=== PATIENT | female | born 1935 | race Two or more races ===

== ENCOUNTER 2016-08-11 16:21 | Inpatient (IN) | payer MEDICAID, MEDICARE, OTHER ==
[~2016-08-11] VITALS: Ht 162.6 cm; Wt 63.5 kg
[~2016-08-11 16:21] MED LIST: *INS REG SQ; ASCO500T9 PO; ASPI81TA2 PO; BLOO-367 VI; CLON0.1T14 PO; CLOP75TA2 PO; DEXT50DI8 IV; FERR325T28 PO; HYDR-3326 PO; HYDR-4076 PO; INSU100C SQ; INSU100V28 SQ; Insulin Glargine,Hum.rec.anlog SQ; LEVO500T15 PO; LINE600T PO; Metoprolol Tartrate PO; SULF1TAB48 PO; Valsartan PO; Zinc Sulfate PO
--- NOTE | 2016-08-11 16:21 | NUR ---
BBRA FROM [facility] FOR LOW BLOOD SUGAR. PT'S BLOOD SUGAR AT FACILITY WAS 34, GIVEN 1GLUCAGON IM IN FIELD. BLOOD SUGAR UP AT 96 IN FIELD. PER RA PT IS MORE ALERT NOW CLOSER BACK TO BASELINE. PT IS A VIETNAMESE SPEAKER, AAO X2, FORGETFUL BUT FOLLOWS COMMANDS. PT PLACED IN GOWN AND MONITOR. AWAITING MD FOR EVAL.
[2016-08-11] MEDS ORDERED: FURO40TA5 PO (16:48)
[2016-08-11] MEDS ORDERED: INSU100V11 SQ (16:48)
[2016-08-11] MEDS ORDERED: CLOP75TA2 PO (16:48)
[2016-08-11] MEDS ORDERED: BLOO-697 IN (16:48)
[2016-08-11] MEDS ORDERED: INSU100V7 SQ (16:48)
[2016-08-11] MEDS ORDERED: VALS80TA2 PO (16:48)
[2016-08-11] MEDS ORDERED: ASCO500T9 PO (16:48)
[2016-08-11] MEDS ORDERED: METO25TA6 PO (16:48)
[2016-08-11] MEDS ORDERED: CLON0.1T PO (16:48)
[2016-08-11] MEDS ORDERED: ATOR10TA PO (16:48)
[2016-08-11] MEDS ORDERED: MULT-659 PO (16:48)
[2016-08-11] MEDS ORDERED: POTA-88 PO (16:48)
[2016-08-11] MEDS ORDERED: HYDR-3326 PO (16:48)
[2016-08-11] MEDS ORDERED: ASPI81TA2 PO (16:48)
[2016-08-11] MEDS ORDERED: SILV25CR5 TP (16:48)
[2016-08-11 16:53] LABS: BASOPHILS # (AUTO) 0.1 /CMM (0.0-0.2); BASOPHILS % (AUTO) 0.8 % (0.0-2.0); EOSINOPHILS # (AUTO) 0.2 /CMM (0.0-0.7); EOSINOPHILS % (AUTO) 1.8 % (0.0-6.0); HEMATOCRIT 32 % (33-45); HEMOGLOBIN 10.7 g/dL (11.5-14.8); LYMPHOCYTES # (AUTO) 1.2 /CMM (0.8-4.8); MEAN CORPUSCULAR HEMOGLOBIN 30 PG (26.0-33.0); MEAN CORPUSCULAR HGB CONC 34 g/dl (31.0-36.0); MEAN CORPUSCULAR VOLUME 88 fL (82-100); MONOCYTES # (AUTO) 0.5 /CMM (0.1-1.30); MONOCYTES % (AUTO) 4.1 % (2.0-12.0); NEUTROPHILS # (AUTO) 9.7 /CMM (1.8-8.9); NEUTROPHILS % (AUTO) 83.3 % (43.0-81.0); PLATELET COUNT (AUTO) 303 /CMM (150-450); RDW COEFFICIENT OF VARIATION 13.4 (11.5-15.0); RED BLOOD CELL COUNT(AUTO) 3.58 MIL/uL (4.0-5.2); WHITE BLOOD COUNT (AUTO) 11.7 K/uL (4.3-11.0)
[2016-08-11] MEDS ORDERED: IV NS 0.9% 1,000 ML BAG IV ONE (17:00)
[2016-08-11 17:02] LABS: CALCIUM, SERUM 10.2 mg/dL (8.5-10.1); POTASSIUM 3.9 mmol/L (3.5-5.1)
[2016-08-11 17:06] LABS: INR 0.99 (0.87-1.13); PROTHROMBIN TIME 10.3 SECS (9.5-12.7)
[2016-08-11] MEDS ORDERED: IV SET PRIMARY 1 EA INFUS.SET MC ONE (17:08)
[2016-08-11] MEDS ORDERED: IV NS 0.9% 1,000 ML ONE (17:08)
[2016-08-11 17:11] LABS: TROPONIN I 0.049 ng/mL (0.00-0.056)
[2016-08-11 17:14] LABS: ALBUMIN 2.6 g/dL (3.4-5.0); BILIRUBIN,DIRECT 0.1 mg/dL (0.0-0.2); BILIRUBIN,TOTAL 0.1 mg/dL (0.2-1.0); TOTAL PROTEIN, SERUM 7.2 g/dL (6.4-8.2)
--- NOTE | 2016-08-11 17:18 | NUR ---
pt more alert and responsive. iv fluids given as ordered. continue to monitor.
--- NOTE | 2016-08-11 17:58 | NUR ---
RN NOTES RECEIVED REPORT FROM IRMA BARTHOLOMEW RN. AWAITING FOR PT.
--- NOTE | 2016-08-11 17:58 | NUR ---
REPORT GIVEN TO QUINTIN ROCHA FOR ADEOLA
[2016-08-11 18:38] LABS: APPEARANCE,URINE Clear (CLEAR); BILIRUBIN,URINE Negative (NEGATIVE); BLOOD, URINE Moderate Ery/uL (NEGATIVE); COLOR,URINE Yellow (YELLOW); KETONES,URINE Negative (NEGATIVE); LEUKOCYTE ESTERASE ,URINE Negative (NEGATIVE); NITRITE, URINE Negative (NEGATIVE); PH,URINE 5.5 (5.0-8.0); PROTEIN,URINE >=300 mg/dl (NEGATIVE); UGLUCOSE Negative (NEGATIVE); UROBILINOGEN,URINE 0.2 EU/dL (0.2)
--- NOTE | 2016-08-11 19:00 | NUR ---
RN CLOSING NOTES PT STILL NOT HERE, REPORT GIVEN TO NIGHT NURSE TO TAKE CARE OF PT WHEN THEY ARRIVE.
--- NOTE | 2016-08-11 19:00 | NUR ---
PT IV OUT, NEW IV STARTED LEFT AC 20G. BANDAGE AND ARMGUARD PLACED AROUND NEW SITE.
[2016-08-11 19:03] LABS: ADD URINE CULTURE YES; BACTERIA,URINE Many /HPF (None Seen); SQUAMOUS EPITHELIAL CELL,UR Few /HPF (None Seen); WBC,URINE 0-2 /HPF (0-3)
--- NOTE | 2016-08-11 19:10 | NUR ---
PT RECEIVED FROM EMERGENCY ROOM [facility]IA [facility]. A/O X2 WELSH SPEAKING WITH PERIODS OF FORGETFULNESS AND AGITATION. ON ROOM AIR AND SATING WELL. VITAL SIGNS AND BODY CHECK DONE. PT SKIN CLEAN AND INTACT. IV SITE LFA CLEAN, INTACT, FLUSHING WELL. HEART AND LUNG SOUNDS AUSCULTATED. ALL SAFETY MEASURES IN PLACE. CALL LIGHT WITHIN REACH. BED IN LOWEST POSITION AND LOCKED. WILL CONTINUE TO MONITOR.
[2016-08-11] MEDS ORDERED: MAG HYDROX/AL HYDROX/SIMETH 30 ML UDC PO PRN (19:30)
[2016-08-11] MEDS ORDERED: BLOOD SUGAR DIAGNOSTIC 1 EACH STRIP IN SCH (19:30)
[2016-08-11] MEDS ORDERED: ONDANSETRON HCL/PF 4 MG/2 ML VIAL IVP PRN (19:30)
[2016-08-11] MEDS ORDERED: IV D5/0.45 NACL 1,000 ML IV SCH (19:30)
[2016-08-11] MEDS ORDERED: Z GUARD REMEDY 2 OZ OINT TP PRN (19:30)
[2016-08-11] MEDS ORDERED: ZOLPIDEM TARTRATE 5 MG TABLET PO PRN (19:30)
[2016-08-11] MEDS ORDERED: MAGNESIUM HYDROXIDE 30 ML UDC PO PRN (19:30)
[2016-08-11 20:00] VITALS: BP 153/96
[2016-08-11] MEDS ORDERED: LORAZEPAM INJ 2 MG/ML VIAL ONE (22:41)
[2016-08-11] MEDS ORDERED: IV SET PRIMARY PUMP SET 1 EA INFUS.SET MC ONE (22:43)
[2016-08-11] MEDS: LORAZEPAM INJ 2 MG/ML VIAL IV PRN (22:47)
[2016-08-11] MEDS: BLOOD SUGAR DIAGNOSTIC 1 EACH STRIP IN SCH ×2 (22:47→22:53)
[2016-08-11] MEDS: ATORVASTATIN 10 MG TABLET PO SCH (22:47)
[2016-08-11] MEDS: DEXTROSE 50%-WATER 50 ML DISP.SYRIN IV PRN (22:58)
--- NOTE | 2016-08-11 23:00 | NUR ---
PLANT GUARD NOTE SPOKE WITH LANGUAGE PATHOLOGIST DR. THORNE FOR PT'S INCREASED AGITATION AND RESTLESSNESS. ORDER FOR ONE TIME ATIVAN IVP 1MG/0.5ML. ORDERS NOTED AND CARRIED OUT.
[2016-08-12] VITALS: BP 169/94
--- NOTE | 2016-08-12 | NUR ---
RN NOTE PT INCREASED AGITATION, SPOKE WITH DR THORNE AND ORDERED BILATERAL SOFT WRIST RESTRAINTS. WILL CONTINUE TO MONITOR.
[2016-08-12] MEDS: BLOOD SUGAR DIAGNOSTIC 1 EACH STRIP IN SCH ×10 (02:04→21:55)
[2016-08-12 04:00] VITALS: BP 108/69
--- NOTE | 2016-08-12 06:30 | NUR ---
LORRY WEIGHER CLOSING NOTE PT REMAINED STABLE DURING SHIFT. NO ACUTE DISTRESS NOTED. ALL SAFETY MEASURES IN PLACE. BED IN LOWEST POSITION, LOCKED AND WITH BED ALARM ON. BILATERAL SOFT WRIST RESTRAINTS ON. WILL ENDORSE TO NEXT SHIFT FOR ADEOLA.
[2016-08-12 06:40] LABS: HEMATOCRIT 28 % (33-45); HEMOGLOBIN 9.5 g/dL (11.5-14.8); LYMPHOCYTES # (AUTO) 0.8 /CMM (0.8-4.8); LYMPHOCYTES % (AUTO) 6.1 % (20.0-44.0); MEAN CORPUSCULAR HEMOGLOBIN 30 PG (26.0-33.0); MEAN CORPUSCULAR HGB CONC 34 g/dl (31.0-36.0); MEAN CORPUSCULAR VOLUME 89 fL (82-100); MONOCYTES # (AUTO) 0.5 /CMM (0.1-1.30); MONOCYTES % (AUTO) 3.8 % (2.0-12.0); NEUTROPHILS # (AUTO) 11.8 /CMM (1.8-8.9); NEUTROPHILS % (AUTO) 90.1 % (43.0-81.0); PLATELET COUNT (AUTO) 297 /CMM (150-450); RDW COEFFICIENT OF VARIATION 14.3 (11.5-15.0); RED BLOOD CELL COUNT(AUTO) 3.18 MIL/uL (4.0-5.2); WHITE BLOOD COUNT (AUTO) 13.1 K/uL (4.3-11.0)
[2016-08-12 06:45] LABS: CALCIUM, SERUM 9.5 mg/dL (8.5-10.1); CREATININE 0.9 mg/dL (0.6-1.3); MAGNESIUM 1.7 mg/dL (1.8-2.4); PHOSPHORUS 3.2 mg/dL (2.5-4.9); POTASSIUM 4.2 mmol/L (3.5-5.1)
--- NOTE | 2016-08-12 07:30 | NUR ---
RN NOTES RECEIVED PT RESTING IN BED, AWAKE LAERT ORIENTED X2-3 LEBANESE SPEEKING. ON RA BRIAN WELL. SR ON TELE MONITOR. PT NOTED AGIATED AND PERIODS OF CONFUSION, HACK SAW OPERATOR AT BEDSIDE FOR TRANSLATION. PT HAS BILATERAL SOFT WRIST RESTRAINTS, RELEASED AND CHECKED FOR CIRCULATION. WITH IVF D5 1/2 NS@50ML/HR, INFUSING ON L FA. NO DISCOMFORT NOTED. CALL LIGHT WITHIN REACH, WILL CONT TO MONITOR
[2016-08-12 08:00] VITALS: BP 173/92
[2016-08-12] MEDS: CLOPIDOGREL BISULFATE 75 MG TABLET PO SCH (08:36)
[2016-08-12] MEDS: MULTIVIT, IRON, MIN NO. 8, FA 1 TAB TABLET PO SCH (08:36)
[2016-08-12] MEDS: CLONIDINE HCL 0.1 MG TABLET PO SCH ×3 (08:37→17:31)
[2016-08-12] MEDS: ASCORBIC ACID 500 MG TABLET PO SCH (08:37)
[2016-08-12] MEDS: PANTOPRAZOLE 40 MG TABLET.DR PO SCH (08:37)
[2016-08-12] MEDS: ASPIRIN 81 MG TAB.CHEW PO SCH (08:37)
[2016-08-12] MEDS: VALSARTAN 80 MG TABLET PO SCH (08:38)
--- NOTE | 2016-08-12 08:40 | NUR ---
RN NOTES LEVEMIR 40 UNITS HELD, BS 76MG/DL
[2016-08-12] MEDS: METOPROLOL TARTRATE 25 MG TABLET PO SCH ×2 (08:42→17:32)
[2016-08-12] MEDS ORDERED: INSULIN DETEMIR 100 UNIT/ML CARTRIDGE SQ SCH (09:00)
[2016-08-12] MEDS ORDERED: SECONDARY IV SET 1 EA INFUS.SET MC ONE (11:41)
[2016-08-12] MEDS: Magnesium 1GM/D5W 100ML PREMIX 100 ML IV SCH ×2 (11:46→13:27)
[2016-08-12] MEDS ORDERED: Magnesium 1GM/D5W 100ML PREMIX 100 ML IV SCH ×2 (12:30→13:00)
[2016-08-12 16:00] VITALS: BP 121/53
--- NOTE | 2016-08-12 19:30 | NUR ---
MATERIALS MGMT TECH INITIAL NOTE PT IN LOWEST BED POSITION, LOCKED WITH BED ALARM ON. A/O X2 URDU SPEAKING, CONFUSED AT TIMES AND RESTLESS WITH BILATERAL SOFT WRIST RESTRAINTS ON. IV LFA #22G SL FLUSHING WELL, PATENT AND INTACT. ON ROOM AIR AND SATING WELL. ALL SAFETY MEASURES IN PLACE. CALL LIGHT WITHIN EASY REACH. WILL CONTINUE TO MONITOR.
[2016-08-12 20:00] VITALS: BP 125/64
[2016-08-12] MEDS: ATORVASTATIN 10 MG TABLET PO SCH (21:55)
[2016-08-12] MEDS: DEXTROSE 50%-WATER 50 ML DISP.SYRIN IV PRN (21:59)
[2016-08-12] MEDS: LORAZEPAM INJ 2 MG/ML VIAL IV PRN (23:38)
[2016-08-13] MEDS: BLOOD SUGAR DIAGNOSTIC 1 EACH STRIP IN SCH ×10 (01:34→22:00)
[2016-08-13 04:00] VITALS: BP 134/86
--- NOTE | 2016-08-13 06:45 | NUR ---
MS RN CLOSING NOTE PT REMAINED STABLE DURING SHIFT. HAS BILATERAL SOFT WRIST RESTRAINTS. BED IN LOWEST POSITION, LOCKED AND WITH BED ALARM ON.IV SITE INTACT AND PATENT. ALL SAFETY MEASURES IN PLACE. CALL LIGHT WITHIN REACH AT ALL TIMES. WILL ENDORSE TO NEXT SHIFT FOR ADEOLA.
[2016-08-13 07:15] LABS: BASOPHILS % (AUTO) 0.2 % (0.0-2.0); EOSINOPHILS # (AUTO) 0.2 /CMM (0.0-0.7); EOSINOPHILS % (AUTO) 2.6 % (0.0-6.0); HEMATOCRIT 28 % (33-45); LYMPHOCYTES # (AUTO) 1.5 /CMM (0.8-4.8); LYMPHOCYTES % (AUTO) 16.9 % (20.0-44.0); MEAN CORPUSCULAR HEMOGLOBIN 29 PG (26.0-33.0); MEAN CORPUSCULAR HGB CONC 33 g/dl (31.0-36.0); MEAN CORPUSCULAR VOLUME 89 fL (82-100); MONOCYTES # (AUTO) 0.5 /CMM (0.1-1.30); MONOCYTES % (AUTO) 6.1 % (2.0-12.0); NEUTROPHILS # (AUTO) 6.4 /CMM (1.8-8.9); NEUTROPHILS % (AUTO) 74.2 % (43.0-81.0); PLATELET COUNT (AUTO) 272 /CMM (150-450); RDW COEFFICIENT OF VARIATION 14.8 (11.5-15.0); RED BLOOD CELL COUNT(AUTO) 3.09 MIL/uL (4.0-5.2); WHITE BLOOD COUNT (AUTO) 8.6 K/uL (4.3-11.0)
--- NOTE | 2016-08-13 07:30 | NUR ---
INITIAL RN NOTES PT IS IN BED, A/O X2, PT HAS EPISODES OF AGITATION, REORIENTED PT WITH A CROATIAN SPEAKING STRATEGIC PARTNERSHIP REPRESENTATIVE AT BEDSIDE, PT IS ON TELE MONITOR, PT IS ON RESTRAINT, CHECKED FOR CIRCULATION, SKIN INTACT, IV ON LEFT FA 22G CDI, PATENT, NO SIGN AND SYMPTOMS OF INFECTION/INFILTRATION. SAFETY MEASURES MAINTAINED, WILL CONTINUE TO MONITOR.
[2016-08-13 08:00] VITALS: BP 142/61
[2016-08-13 08:22] LABS: CALCIUM, SERUM 9.6 mg/dL (8.5-10.1); CREATININE 1.1 mg/dL (0.6-1.3); MAGNESIUM 2.8 mg/dL (1.8-2.4)
[2016-08-13] MEDS ORDERED: INSULIN DETEMIR 100 UNIT/ML CARTRIDGE SQ SCH (09:00)
--- NOTE | 2016-08-13 09:00 | NUR ---
RN NOTES PTS LEVEMIR NOT GIVEN BECAUSE PT HAS CONTINUOUS LOW BG LEVEL. LAST BG WAS 107 AFTER D50 WS GIVEN. PT HAD REFUSED DINNER FROM 08/12/16. WILL CONTINUE TO MONITOR.
[2016-08-13] MEDS: CLOPIDOGREL BISULFATE 75 MG TABLET PO SCH (09:36)
[2016-08-13] MEDS: MULTIVIT, IRON, MIN NO. 8, FA 1 TAB TABLET PO SCH (09:36)
[2016-08-13] MEDS: ASPIRIN 81 MG TAB.CHEW PO SCH (09:36)
[2016-08-13] MEDS: VALSARTAN 80 MG TABLET PO SCH (09:37)
[2016-08-13] MEDS: CLONIDINE HCL 0.1 MG TABLET PO SCH ×3 (09:37→17:12)
[2016-08-13] MEDS: ASCORBIC ACID 500 MG TABLET PO SCH (09:37)
[2016-08-13] MEDS: PANTOPRAZOLE 40 MG TABLET.DR PO SCH (09:37)
[2016-08-13] MEDS: METOPROLOL TARTRATE 25 MG TABLET PO SCH ×2 (09:38→17:12)
[2016-08-13] MEDS ORDERED: INSU100V7 SQ (10:57)
--- NOTE | 2016-08-13 12:04 | NUR ---
RN NOTES PER CM WILBER, PT NEEDS TO BE DISCHARGED TOMORROW AM. WILL NOTIFY .
--- NOTE | 2016-08-13 12:10 | NUR ---
RN NOTES REMOVE RESTRAINTS, WILL CONTINUE TO MONITOR
[2016-08-13] MEDS: INSULIN REGULAR, HUMAN 100 UNIT/ML 3 ML VIAL SQ PRN ×2 (12:16→17:18)
[2016-08-13 16:00] VITALS: BP 151/56
--- NOTE | 2016-08-13 19:27 | NUR ---
RN CLOSING NOTES, ENDORSED TO THE NIGHT NURSE, PT IS IN STABLE CONDITION, IV IS FLUSHED AND PATENT NO SIGN AND SYMPTOMS OF INFECTION/ INFILTRATION. ALL MEDS GIVEN, AND TOLERATED WELL, ALL MD ORDERS CARRIED OUT, SAFETY MEASURES MAINTAINED, CALL LIGHTS WITHIN REACH.
[2016-08-13 20:00] VITALS: BP 142/89
--- NOTE | 2016-08-13 20:00 | NUR ---
RN NOTES PRIMARY NURSE REPORTED TO CN THAT ON INITIAL ASSESSMENT, PATIENT OBSERVED TO HAVE INTACT DRY, OLD DRESSING ON RLE. OPENED DRESSING AND NOTED OPEN WOUND ON SITE, NOTED WITH MODERATE SEROUS DISCHARGE. INITIAL WOUND TREATMENT RENDERED, KEPT CLEAN AND DRY. CHECKED CHART, NO DOCUMENTED RLE WOUND ON ADMIT. PICTURE TAKEN AND FILED IN CHART. PATIENT'S SAFETY AND COMFORT ENSURED. INFORMED YOUNG MACARIO NP, MADE AWARE. WOUND CONSULT ORDERED.
--- NOTE | 2016-08-13 20:30 | NUR ---
RN PT C/O GENERALIZED PAIN , BUT REFUSED NORCO AFTER TAKING IT OUT OF PYXIS. PT STATED SHES NO LONGER IN PAIN AND WANTS TO GO HOME. PT IS HAVING PERIODS OF CONFUSION. ATTEMPTED TO REORIENT AND TEACH RELAXATION TECHNIQUES. BS LEVEL 128. VITALS WNL. WILL CONT TO MONITOR. BED ALARM ON AND CALL LIGHT WITHIN REACH FOR SAFETY .
[2016-08-13] MEDS: LORAZEPAM INJ 2 MG/ML VIAL IV PRN (20:45)
--- NOTE | 2016-08-13 20:45 | NUR ---
RN PT IS VERY AGITATED AND ATTEMPTING TO GET OOB. PT ATTEMPTING TO PULL IV OUT. PT IS VERBALLY ABUSIVE AND COMBATIVE AGAINST THE NURSES. PRN ATIVAN GIVEN. CALLED INSTALLATION & MAINTENANCE EXECUTIVE MD FOR RESTRAINT ORDERS.
--- NOTE | 2016-08-13 21:00 | NUR ---
RESIDENTIAL FEE APPRAISER PT IS STILL SCREAMING AND COMBATIVE . O2 SAT 93% , HOB ELEVATED AND PLACED PT ON NC AT 2L. O2 SAT INCREASED TO 100% WITHIN 30 SECONDS. YOUNG MACARIO MATCHER LEATHER PARTS AWARE OF PT CONDITION. ORDER FOR RESTRAINTS GIVEN.
--- NOTE | 2016-08-13 21:24 | NUR ---
RN PT IS CALM NOW BUT STILL ATTEMPTING TO THROW LEGS OVER BED. RESTRAINTS IN PLACE FOR SAFETY . BED ALARM ON AND CALL LIGHT WITHIN REACH. WILL CONT TO MONITOR FOR SAFETY.
[2016-08-13] MEDS: ATORVASTATIN 10 MG TABLET PO SCH (22:00)
--- NOTE | 2016-08-13 23:30 | NUR ---
RN PT IS SLEEPING BUT AROUSABLE TO TOUCH AND NAME. PT IS DROWSY AND REFUSING PO INTAKE. VITALS TAKEN ,O2 SAT 100%, BP NOTED TO BE ELEVATED W SBP OF 176. NO PRN MEDS AVAILABLE FOR ELEVATED BP. BS IS 77. RUSTY MACARIO CAR CONSTRUCTION SUPERINTENDENT AWARE OF PTS CURRENT CONDITION. AT BEDSIDE AND ASSESSED PT. INSTRUCTED TO CONT MONITORING BP AND CALL ON HER IF SBP IS ABOVE 180 .
[2016-08-14] VITALS (9 sets, daily range): BP systolic 120–192; BP diastolic 51–93
[2016-08-14] MEDS: BLOOD SUGAR DIAGNOSTIC 1 EACH STRIP IN SCH ×10 (01:00→21:07)
--- NOTE | 2016-08-14 04:00 | NUR ---
RN PTS BP IS ELEVATED ABOVE 180. NO PRN BP MEDS AVAILABLE. CALLED GREY TENDER RENALDO GRADY .
--- NOTE | 2016-08-14 04:50 | NUR ---
INSURANCE CODERAJ MACARIO GAVE ORDER TO TRANSFER PT TO TELEMETRY AND GIVE APRESOLINE IVP . GAVE MED IVP AND PLACED ON TELEMETRY. Addendum: 08/14/16 at 0545 by JIM MAYERS RN SR ON MONITOR. Addendum: 08/14/16 at 0546 by JIM MAYERS RN ERROR : NOT IN ICU
[2016-08-14] MEDS ORDERED: hydrALAZINE HCL IV 20 MG VIAL ONE (04:58)
[2016-08-14] MEDS: hydrALAZINE HCL IV 20 MG VIAL IV PRN ×2 (05:05→16:00)
--- NOTE | 2016-08-14 05:30 | NUR ---
RN REASSESSED BP . BP IS 147/51 . WILL CONT TO MONITOR.
[2016-08-14] MEDS ORDERED: INSULIN DETEMIR 100 UNIT/ML CARTRIDGE SQ SCH ×2 (09:00)
[2016-08-14] MEDS: MULTIVIT, IRON, MIN NO. 8, FA 1 TAB TABLET PO SCH (09:11)
[2016-08-14] MEDS: ASCORBIC ACID 500 MG TABLET PO SCH (09:11)
[2016-08-14] MEDS: PANTOPRAZOLE 40 MG TABLET.DR PO SCH (09:11)
[2016-08-14] MEDS: ASPIRIN 81 MG TAB.CHEW PO SCH (09:11)
[2016-08-14] MEDS: CLOPIDOGREL BISULFATE 75 MG TABLET PO SCH (09:11)
[2016-08-14] MEDS: CLONIDINE HCL 0.1 MG TABLET PO SCH (09:12)
[2016-08-14] MEDS: METOPROLOL TARTRATE 25 MG TABLET PO SCH ×2 (09:12→16:01)
[2016-08-14] MEDS: VALSARTAN 80 MG TABLET PO SCH (09:12)
--- NOTE | 2016-08-14 09:23 | NUR ---
RECEIVED ASLEEP BUT AROUSABLE,POOR PO INTAKE,ONLY ATE 10% OF BREAKFAST,BS 98,WILL HOLD LLONG ACTING INSULIN SINCE PT. NOT EATING MD NOTIFIED.WILL CONTINUE TO MONITOR,OFF BILATERAL WRIST RESTRAINT R/T LETHARGY S/P ATIVAN EARLY MIRNING.FALL RISK PRECAUTION OBSERVED,BED ALARM ON,SIDERAILS UP.
--- NOTE | 2016-08-14 12:00 | NUR ---
pt. awake ,talking to self,reassured she is being taken care of,fall risk precaution observed.
[2016-08-14] MEDS: AMLODIPINE BESYLATE 5 MG TABLET PO SCH (12:35)
[2016-08-14] MEDS: ACETAMINOPHEN 325 MG TABLET PO PRN (12:36)
--- NOTE | 2016-08-14 16:13 | NUR ---
DAUGHTER AT BEDSIDE UPDATED W/ PT. CONDITION,PRN HYDRALAZINE GIVEN IVP RT INCREASE SBP 184.
--- NOTE | 2016-08-14 16:30 | NUR ---
PT. SPIT OUT LOPRESSOR MEDS GIVEN PO.
--- NOTE | 2016-08-14 16:56 | NUR ---
duplicate accuc[facility]ck [facility] notified.pt. still w/ poor appetite.daughter at bedside will try to feed pt.
--- NOTE | 2016-08-14 20:00 | NUR ---
RN INITIAL NOTES RECEIVED THE PATIENT SLEEPING ON BED, VERY DROWSY BUT AROUSABLE TO NAME AND TOUCH. PT IS A/O X1 ONLY WHEN AWAKE, ON 2L NASAL CANNULA SATURATING WELL. FAMILY AT BEDSIDE. CURRENTLY SR ON THE MONITOR, HR 70'S. ON DIAPERS ONLY. LEFT FOREARM 22G SL IS FLUSHED AND PATENT, NO S/S OF INFILTRATION/INFECTION, DRESSING CDI. BED LOW AND LOCKED, SIDERAILS UP, BED ALARM ON. WILL MONITOR
[2016-08-14] MEDS: ATORVASTATIN 10 MG TABLET PO SCH (21:07)
[2016-08-14] MEDS: HYDROCODONE/APAP 5/325MG 1 EACH TABLET PO PRN (21:07)
[2016-08-14] MEDS: INSULIN REGULAR, HUMAN 100 UNIT/ML 3 ML VIAL SQ PRN (21:12)
[2016-08-15] VITALS: BP 149/63
[2016-08-15] MEDS: BLOOD SUGAR DIAGNOSTIC 1 EACH STRIP IN SCH ×10 (00:09→21:24)
[2016-08-15] MEDS: INSULIN REGULAR, HUMAN 100 UNIT/ML 3 ML VIAL SQ PRN ×5 (00:10→21:26)
[2016-08-15] MEDS: HYDROCODONE/APAP 5/325MG 1 EACH TABLET PO PRN ×2 (02:08→12:47)
[2016-08-15 04:00] VITALS: BP 148/57
--- NOTE | 2016-08-15 06:30 | NUR ---
RN CLOSING NOTES PT REMAINS STABLE OF THE MOMENT. ALL DUE MEDS GIVEN, AM CARE PROVIDED. WILL ENDORSE TO AM RN
[2016-08-15 07:12] LABS: CALCIUM, SERUM 9.1 mg/dL (8.5-10.1); CREATININE 1.2 mg/dL (0.6-1.3); MAGNESIUM 2.3 mg/dL (1.8-2.4); PHOSPHORUS 3.3 mg/dL (2.5-4.9); POTASSIUM 4.3 mmol/L (3.5-5.1)
[2016-08-15 07:18] LABS: BASOPHILS % (AUTO) 0.5 % (0.0-2.0); EOSINOPHILS # (AUTO) 0.2 /CMM (0.0-0.7); HEMATOCRIT 27 % (33-45); HEMOGLOBIN 8.6 g/dL (11.5-14.8); MEAN CORPUSCULAR HEMOGLOBIN 29 PG (26.0-33.0); MEAN CORPUSCULAR HGB CONC 33 g/dl (31.0-36.0); MEAN CORPUSCULAR VOLUME 90 fL (82-100); MONOCYTES # (AUTO) 0.4 /CMM (0.1-1.30); MONOCYTES % (AUTO) 8.3 % (2.0-12.0); NEUTROPHILS # (AUTO) 3.2 /CMM (1.8-8.9); NEUTROPHILS % (AUTO) 66.2 % (43.0-81.0); PLATELET COUNT (AUTO) 271 /CMM (150-450); RDW COEFFICIENT OF VARIATION 15.1 (11.5-15.0); RED BLOOD CELL COUNT(AUTO) 2.95 MIL/uL (4.0-5.2); WHITE BLOOD COUNT (AUTO) 4.8 K/uL (4.3-11.0)
--- NOTE | 2016-08-15 07:36 | NUR ---
RN NOTES RECEIVED PT RESTING IN BED, AWAKE ALERT ORIENTED TO IMMEDIATE NEEDS, ABLE TO MAKE NEEDS THRU YI. NO ACUTE DISTRESS NOTED. DENIES PAIN AT THIS TIME. REPOSITIONED FOR COMFORT. SAFETY MAINTAINED. CALL LIGHT WITHIN REACH.
[2016-08-15 08:00] VITALS: BP 176/75
[2016-08-15] MEDS: PANTOPRAZOLE 40 MG TABLET.DR PO SCH (08:20)
[2016-08-15] MEDS: ASCORBIC ACID 500 MG TABLET PO SCH (08:20)
[2016-08-15] MEDS: MULTIVIT, IRON, MIN NO. 8, FA 1 TAB TABLET PO SCH (08:20)
[2016-08-15] MEDS: CLOPIDOGREL BISULFATE 75 MG TABLET PO SCH (08:20)
[2016-08-15] MEDS: ASPIRIN 81 MG TAB.CHEW PO SCH (08:20)
[2016-08-15] MEDS: METOPROLOL TARTRATE 25 MG TABLET PO SCH ×2 (08:21→16:58)
[2016-08-15] MEDS: VALSARTAN 80 MG TABLET PO SCH (08:22)
[2016-08-15] MEDS: AMLODIPINE BESYLATE 5 MG TABLET PO SCH (08:22)
--- NOTE | 2016-08-15 11:50 | NUR ---
WOUND CARE CONSULT: PATIENT SEEN AND SKIN ASSESSMENT DONE. PATIENT ALERT, INCONTINENT, HAS DIFFICULTY TURNING AND REPOSITIONING, OSCAR [employer], NURSING STAFF ORDERED VALENTIN ISOFLEX ROBERTO CARLOS BED AND WILL BE PLACED WHEN AVAILABLE IN THE UNIT. SEE TODAY'S SKIN ASSESSMENT IN [facility] ALONG WITH RECOMMENDATIONS. RECOMMEND MOISTURE PROTECTION AND PRESSURE PREVENTION MEASURES ORDERED. ALL DISCUSSED WITH NURSING STAFF. MD IN AGREEMENT WITH PLAN OF CARE. Addendum: 08/15/16 at 1152 by MU JOSHI WNDNU Amended: Links added.
[2016-08-15 12:00] VITALS: BP 159/71
[2016-08-15] MEDS: HYDROCHLOROTHIAZIDE 25 MG TABLET PO SCH (13:21)
[2016-08-15] MEDS: LORAZEPAM INJ 2 MG/ML VIAL IV PRN (15:40)
--- NOTE | 2016-08-15 15:49 | NUR ---
RN NOTES PT NOTED VERY CONFUSED AND AGITATED, STRIKING OUT DURING CARE, TRYING TO GET OUT OF BED UNASSISTED, MD AWARE WITH NEW ORDER BILATERAL SOFT RESTRAINT.
[2016-08-15 16:00] VITALS: BP 122/71
--- NOTE | 2016-08-15 19:28 | NUR ---
RN CLOSING NOTES ENDORSED TO THE NIGHT NURSE, PT IS IN STABLE CONDITION, NO DISTRESS NOTED. PT IS IN BED, HOB ELEVATED 35 DEGREES. IV SITE PATENT, NO S/SX OF INFECTION/INFLITRATION.SAFETY MEASURES MAINTAINED CALL LIGHTS WITHIN REACHED.
--- NOTE | 2016-08-15 19:36 | NUR ---
DEBONING TEAM LEADER NOTES RECEIVED PT IN BED, AWAKE, A/O X2. DUTCH SPEAKING, FAMILY AT BEDSIDE. ON 2 LPM OXYGEN VIA NC. TELE READS SR AT 78 BPM. NO S/S OF ACUTE DISTRESS, PT DENIES PAIN. PT EATING SANDWICH WITH NO S/S OF SWALLOW DIFFICULTY. LEFT FA 20G IV INTACT. HOB ELEVATED, SIDE RAILS X3. CALL LIGHT WITHIN REACH.
[2016-08-15 20:00] VITALS: BP 164/75
[2016-08-15] MEDS: CLONIDINE HCL 0.1 MG TABLET PO PRN (21:19)
[2016-08-15] MEDS: ACETAMINOPHEN 325 MG TABLET PO PRN (21:20)
[2016-08-15] MEDS: ATORVASTATIN 10 MG TABLET PO SCH (21:22)
[2016-08-15] MEDS ORDERED: INSULIN DETEMIR 100 UNIT/ML CARTRIDGE SQ SCH (22:00)
[2016-08-15 23:56] LABS: ABG BASE EXCESS 3.9 mmol/L; ABG OXYGEN SATURATION 95.5 % (92.0-98.5); ABG PCO2 54.7 mmHg (35.0-45.0); ABG PH 7.359 (7.350-7.450); ABG PO2 87.3 mmHg (75.0-100.0); ABG TOTAL HEMOGLOBIN 9.2 G/dL (12.0-16.0); AaDO2 76.9 mmHg; COHb 1.2 % (0.5-1.5); MetHb 0.8 % (0.0-1.5); O2Hb 93.6 % (94.0-97.0); SITE, ABG Right Radial; VENT MODE, BG 3L NC
[2016-08-16] VITALS: BP_SYST 145; BP_SYST 169; BP_DIAS 56; BP_DIAS 69
[2016-08-16] MEDS: LORAZEPAM INJ 2 MG/ML VIAL IV PRN (00:13)
[2016-08-16] MEDS: BLOOD SUGAR DIAGNOSTIC 1 EACH STRIP IN SCH ×10 (00:22→21:41)
[2016-08-16] MEDS: INSULIN REGULAR, HUMAN 100 UNIT/ML 3 ML VIAL SQ PRN ×3 (00:41→21:40)
[2016-08-16] MEDS: HYDROCODONE/APAP 5/325MG 1 EACH TABLET PO PRN (01:02)
[2016-08-16 04:00] VITALS: BP 151/79
[2016-08-16] MEDS: DEXTROSE 50%-WATER 50 ML DISP.SYRIN IV PRN (05:56)
--- NOTE | 2016-08-16 07:30 | NUR ---
RN NOTES RECEIVED PT RESTING IN BED, ASLEEP AT THIS TIME, DAUGHTER AT BEDSIDE. IN NO ACUTE DISTRESS NOTED. NO PAIN NOTED, REPOSITIONED FOR COMFORT. SAFETY MAINTAINED. CALL LIGHT WITHIN REACH.
[2016-08-16 08:00] VITALS: BP 150/63
[2016-08-16] MEDS: MULTIVIT, IRON, MIN NO. 8, FA 1 TAB TABLET PO SCH (08:35)
[2016-08-16] MEDS: ASCORBIC ACID 500 MG TABLET PO SCH (08:35)
[2016-08-16] MEDS: METOPROLOL TARTRATE 25 MG TABLET PO SCH ×2 (08:36→17:07)
[2016-08-16] MEDS: AMLODIPINE BESYLATE 10 MG TABLET PO SCH (08:37)
[2016-08-16] MEDS: HYDROCHLOROTHIAZIDE 25 MG TABLET PO SCH (08:37)
[2016-08-16] MEDS: VALSARTAN 80 MG TABLET PO SCH (08:38)
[2016-08-16] MEDS: PANTOPRAZOLE 40 MG TABLET.DR PO SCH (08:38)
[2016-08-16] MEDS: CLOPIDOGREL BISULFATE 75 MG TABLET PO SCH (08:38)
[2016-08-16] MEDS: ASPIRIN 81 MG TAB.CHEW PO SCH (08:38)
[2016-08-16 12:00] VITALS: BP 166/64
[2016-08-16 16:00] VITALS: BP 175/66
--- NOTE | 2016-08-16 19:07 | NUR ---
RN CLOSING NOTES PT IS IN BED, SIDERAILS UP, HOB ELEVATED 35 DEGREES, NO SI/SX OF DISTRESS NOTED, NO RESPIRATORY DISTRESS. IV SALINE LOCK PATENT, NO S/SX OF INFECTION/INFILTRATION NOTED. ALL MEDS GIVEN ORDERED, PT TOLERATED WELL, ALL MD ORDERS CARRIED OUT. SAFETY MEASURES MAINTAINED, CALL LIGHTS WITHIN REACH. ALL NEEDS MET
--- NOTE | 2016-08-16 19:30 | NUR ---
SAMPLE TAKER OPERATOR INITIAL NOTES RECEIVED PATIENT ALERT AND AWAKE. FAMILY MEMBERS AT BEDSIDE. DENIES PAIN OR DISCOMFORT. DENIES SOB. RFA 20G PATENT AND INTACT. ON TELE MONITOR SINUS RHYTHM. SIDE RAILS UP AND LOCKED. BED KEPT AT LOWEST POSITION. CALL LIGHT KEPT WITHIN EASY REACH. WILL CONTINUE TO MONITOR.
[2016-08-16 20:00] VITALS: BP 155/77
[2016-08-16] MEDS: ATORVASTATIN 10 MG TABLET PO SCH (21:41)
[2016-08-16] MEDS: CLONIDINE HCL 0.1 MG TABLET PO PRN (23:40)
[2016-08-17] VITALS: BP 107/68
[2016-08-17] MEDS: BLOOD SUGAR DIAGNOSTIC 1 EACH STRIP IN SCH ×6 (00:35→13:16)
[2016-08-17 04:00] VITALS: BP 159/66
--- NOTE | 2016-08-17 06:01 | NUR ---
LIGHTER CLOSING NOTES NO SIGNIFICANT CHANGES OVERNIGHT. ALL NEEDS ANTICIPATED AND MET. ALL DUE MEDS GIVEN. DENIES SOB. DENIES PAIN OR DISCOMFORT. RESPIRATIONS EVEN AND UNLABORED. SKIN WARM AND DRY TO TOUCH. SINUS RHYTHM ON TELE. KEPT CLEAN AND DRY. TURNED AND REPOSITIONED Q2 AND PRN. FREQUENT CHECKS AND ORIENTATION. SIDE RAILS UP AND LOCKED. BED KEPT AT LOWEST POSITION. CALL LIGHT KEPT WITHIN EASY REACH. WILL ENDORSE CONTINUITY OF CARE TO AM NURSE.
[2016-08-17] MEDS: INSULIN REGULAR, HUMAN 100 UNIT/ML 3 ML VIAL SQ PRN ×2 (06:37→12:38)
[2016-08-17] MEDS: PANTOPRAZOLE 40 MG TABLET.DR PO SCH (07:56)
[2016-08-17] MEDS: ASPIRIN 81 MG TAB.CHEW PO SCH (07:57)
[2016-08-17] MEDS: MULTIVIT, IRON, MIN NO. 8, FA 1 TAB TABLET PO SCH (07:57)
[2016-08-17] MEDS: LORAZEPAM INJ 2 MG/ML VIAL IV PRN (07:58)
[2016-08-17] MEDS: ASCORBIC ACID 500 MG TABLET PO SCH (07:58)
[2016-08-17 08:00] VITALS: BP 177/59
--- NOTE | 2016-08-17 08:00 | NUR ---
RN INITIAL NOTE PT RECEIVED IN BED, SLEEPING COMFORTABLY. POLISH SPEAKING. SR ON TELE MONITOR. RESPIRATIONS ARE EVEN AND UNLABORED. SATING WELL ON 4L N/C. NO S/S OF RESPIRATORY DISTRESS OR SOB. DENIES PAIN AT THIS TIME. IV SITE C/D/I. IV LINE FLUSHED, PATENT AND INTACT. SAFETY MEASURES IMPLEMENTED. BED IN LOCKED, LOW POSITION. CALL LIGHT WITHIN REACH. WILL CONTINUE TO MONITOR.
[2016-08-17] MEDS: METOPROLOL TARTRATE 25 MG TABLET PO SCH (08:09)
[2016-08-17] MEDS: CLOPIDOGREL BISULFATE 75 MG TABLET PO SCH (08:09)
[2016-08-17] MEDS: AMLODIPINE BESYLATE 10 MG TABLET PO SCH (08:10)
[2016-08-17] MEDS: VALSARTAN 80 MG TABLET PO SCH (08:10)
[2016-08-17] MEDS: HYDROCHLOROTHIAZIDE 25 MG TABLET PO SCH (08:12)
--- NOTE | 2016-08-17 09:14 | NUR ---
RN INITIAL NOTE PT RECEIVED IN BED, ASLEEP, RESTING COMFORTABLY. SR ON TELE MONITOR. RESPIRATIONS ARE EVEN AND UNLABORED. NO S/S OF RESPIRATORY DISTRESS OR SOB. NO S/S OF PAIN AT THIS TIME. IV SITE C/D/I. IV LINE FLUSHED, PATENT AND INTACT. SAFETY MEASURES IMPLEMENTED. BED IN LOCKED, LOW POSITION. CALL LIGHT WITHIN REACH. WILL CONTINUE TO MONITOR.
[2016-08-17 12:00] VITALS: BP 155/64
--- NOTE | 2016-08-17 14:30 | NUR ---
RN CLOSING NOTE PT DISCHARGED PER DR MANNING. REPORT GIVEN TO WESLY AT [facility] AND [facility] ([facility]) FOR TRANSPORT FOR ADEOLA
== END 2016-08-17 16:44 | DRG 917 ==
LOC: ER 16:26 → TELE1 17:51 → MEDSG1 08-12 10:19 → TELE1 08-14 05:18 → TELE-TD 08-14 18:53 → TELE1 08-15 11:46 → MEDSG1 08-17 10:56
PROVIDERS: ADMIT Student in an Organized Health Care Education/Training Program; ATTEND Student in an Organized Health Care Education/Training Program
DX: T38.3X1A Poisoning by insulin and oral hypoglycemic [antidiabetic] drugs, accidental (unintentional), initial encounter (principal); N17.0 Acute kidney failure with tubular necrosis; G93.41 Metabolic encephalopathy; E44.0 Moderate protein-calorie malnutrition; Y92.89 Other specified places as the place of occurrence of the external cause; I10 Essential (primary) hypertension; E11.621 Type 2 diabetes mellitus with foot ulcer; Z79.4 Long term (current) use of insulin; E78.5 Hyperlipidemia, unspecified; E11.649 Type 2 diabetes mellitus with hypoglycemia without coma; E83.52 Hypercalcemia; E86.0 Dehydration; L97.519 Non-pressure chronic ulcer of other part of right foot with unspecified severity; D72.829 Elevated white blood cell count, unspecified; E16.0 Drug-induced hypoglycemia without coma; E66.9 Obesity, unspecified; F03.90 Unspecified dementia, unspecified severity, without behavioral disturbance, psychotic disturbance, mood disturbance, and anxiety; L97.529 Non-pressure chronic ulcer of other part of left foot with unspecified severity; Z68.24 Body mass index [BMI] 24.0-24.9, adult
CPT/HCPCS: 36415; 36600; 70450-TC; 71010-TC; 80048-TC; 80061-TC; 80076-TC; 81000-TC; 82803-TC; 82962-TC; 83690-TC; 83735-TC; 84100-TC; 84484-TC; 85025-TC; 85730-TC; 87081-TC; 87086-TC; 94799-TC; A4606; J0360; J1815; J2060; J3475; J3490; J7030; Z7610